=== PATIENT | female | born 1995 | race Caucasian/White ===

== ENCOUNTER 2022-09-25 19:48 | Emergency (ER) | payer MEDICAID ==
[2022-09-25] MEDS ORDERED: Ketorolac 10 MG Tab PO ONE (19:49)
[2022-09-25] MEDS ORDERED: Ciprofloxacin 500 MG Tab PO ONE (19:49)
[2022-09-25 20:57] LABS: ESTIMATED GFR 79 mL/min (>60)
== END 2022-09-25 21:28 | disposition home or self-care (01) ==
LOC: FB.ED 19:48
DX: N10 Acute pyelonephritis (principal)
CPT/HCPCS: 36415; 80048; 81001; 83605; 84702; 85025; 86140; 87086; 87088; 87186; 99283; A9270-GY

== ENCOUNTER 2022-10-28 11:31 | Emergency (ER) | payer MEDICAID ==
[2022-10-28 12:15] LABS: ESTIMATED GFR 89 mL/min (>60)
== END 2022-10-28 12:34 | disposition home or self-care (01) ==
LOC: FB.ED 11:31
DX: N39.0 Urinary tract infection, site not specified (principal); N12 Tubulo-interstitial nephritis, not specified as acute or chronic; Z86.16 Personal history of COVID-19
CPT/HCPCS: 36415; 80048; 81001; 85025; 87086; 87088; 87186; 99283

== ENCOUNTER 2024-02-18 12:21 | Emergency (ER) | payer MEDICAID ==
[2024-02-18] MEDS: Lidocaine 2% 5 ML SDV INJECT ONE (13:05)
== END 2024-02-18 13:30 | disposition home or self-care (01) ==
LOC: FB.ED 12:21
DX: S63.285A Dislocation of proximal interphalangeal joint of left ring finger, initial encounter (principal); Z86.16 Personal history of COVID-19; W10.8XXA Fall (on) (from) other stairs and steps, initial encounter
CPT/HCPCS: 26770; 73140-F3; 99283-25